=== PATIENT | male | born 1960 | race African-American/Black ===

== ENCOUNTER 2021-04-08 05:09 | Day surgery (SDC) | payer BC ==
[2021-04-07 14:11] VITALS: BMI 28.0
[2021-04-08 08:34] VITALS: TEMP 98
[2021-04-08 15:06] VITALS: BP 115/72; PULSE 65
== END 2021-04-08 09:45 | disposition home or self-care (01) ==
LOC: JASU-ENDO 05:09
PROVIDERS: ATTEND Internal Medicine Gastroenterology
PROC: 0DB78ZX Excision of Stomach, Pylorus, Via Natural or Artificial Opening Endoscopic, Diagnostic (ICD-10-PCS; 2021-04-08)
PROC: 0DBL8ZX Excision of Transverse Colon, Via Natural or Artificial Opening Endoscopic, Diagnostic (ICD-10-PCS; principal; 2021-04-08 08:00)
DX: Z12.11 Encounter for screening for malignant neoplasm of colon (principal); D12.3 Benign neoplasm of transverse colon; K29.60 Other gastritis without bleeding; K57.30 Diverticulosis of large intestine without perforation or abscess without bleeding; Z86.010 Personal history of colon polyps; I10 Essential (primary) hypertension
CPT/HCPCS: 88305-TC; 88342-TC